=== PATIENT | male | born 1975 | race Caucasian/White ===

== ENCOUNTER 2016-08-13 13:04 | Emergency (ER) | payer OTHER ==
[2016-08-13 13:20] VITALS: BP 129/78
--- NOTE | 2016-08-13 13:44 | UC ---
Laceration HPI - HPI Summary HPI Summary: complaint of laceration on left pointer finger that occurred at 11:30 today was using a utility knife and cut his finger lots of bleeding this morning thinks he had a tetanus shot within the last 2 years hasn't taken any medication for pain - History Of Current Complaint Chief Complaint: UCLaceration Stated Complaint: FINGER LAC Time Seen by Provider: 08/13/16 13:35 Hx Obtained From: Patient - Allergies/Home Medications Allergies/Adverse Reactions: Allergies Allergy/AdvReac Type Severity Reaction Status Date / Time amoxicillin Allergy Hives Uncoded 08/13/16 13:15 Home Medications: Home Medications NK [No Home Medications Reported] 08/13/16 [History Confirmed 08/13/16] PMH/Surg Hx/FS Hx/Imm Hx Previously Healthy: Yes - Surgical History Surgical History: Yes Surgery Procedure, Year, and Place: L knee arthroscopy, vasectomy - Family History Known Family History: Negative: Cardiac Disease, Hypertension, Diabetes - Social History Occupation: Employed Full-time Lives: With Family Alcohol Use: Occasionally Substance Use Type: None Smoking Status (MU): Never Smoked Tobacco - Immunization History Most Recent Tetanus Shot: 2014 or 2015 Review of Systems Constitutional: Negative Skin: Other - laceration left pointer finger Eyes: Negative ENT: Negative Respiratory: Negative Cardiovascular: Negative Gastrointestinal: Negative Genitourinary: Negative Motor: Negative Neurovascular: Negative Musculoskeletal: Negative Neurological: Negative Psychological: Negative All Other Systems Reviewed And Are Negative: Yes Physical Exam Triage Information Reviewed: Yes Appearance: Well-Appearing, No Pain Distress, Well-Nourished Vital Signs: Initial Vital Signs Temp 98.1 F 08/13/16 13:16 Pulse 60 08/13/16 13:16 Resp 16 08/13/16 13:16 BP 129/78 08/13/16 13:16 Pulse Ox 97 08/13/16 13:16 Vital Signs Reviewed: Yes Eyes: Positive: Conjunctiva Clear ENT: Positive: Pharynx normal, TMs normal Neck: Positive: No Lymphadenopathy Respiratory: Positive: Lungs clear, Normal breath sounds, No respiratory distress Cardiovascular: Positive: RRR, No Murmur, Pulses Normal Abdomen Description: Positive: Nontender, Soft Bowel Sounds: Positive: Present Musculoskeletal Exam: Normal Neurological: Positive: Alert Psychological Exam: Normal Skin: Positive: Other - left pointer finger 7mm, normal ROM Laceration Repair - Laceration Repair 1 Description: Linear Laceration Size After Repair: Length (cm) - 7, Width (mm) - 1, Depth (mm) - 2 Modified For Repair: No Cleansing Completed Via Routine Prep: Yes Irrigation With Pressure Irrigation Device: Yes Closure Material: Skin Adhesive, SteriStrips Suture Of: Skin Laceration Course/Dx - Differential Dx - Laceration/Wound Differental Diagnoses: Laceration Provider Diagnoses: left pointer finger laceration-simple Discharge - Discharge Plan Condition: Stable Disposition: HOME Patient Education Materials: Skin Adhesive Care (ED), Steristrips (ED) Referrals: Bruce Estrada MD [Primary Care Provider] - Additional Instructions: keep your finger clean and dry leave the steristrips in place until they fall off return to the clinic for any increase in pain, swelling or redness in your fingertip Take acetaminophen or ibuprofen for fever or pain Please review your discharge instructions. If your symptoms do not improve please call your primary care provider or return to urgent care. Your blood pressure is pre-hypertensive reading. Please contact your primary care provider within 1 day -4 weeks for further evaluation
[2016-08-13] MEDS ORDERED: Benzoin Compound STICK ONE (13:45)
== END 2016-08-13 14:00 | disposition home or self-care (01) ==
LOC: UCEAST 13:04
DX: S61.211A Laceration without foreign body of left index finger without damage to nail, initial encounter (principal); W45.8XXA Other foreign body or object entering through skin, initial encounter; Y93.9 Activity, unspecified; Y92.9 Unspecified place or not applicable; Z88.1 Allergy status to other antibiotic agents
CPT/HCPCS: 99212; G0463